=== PATIENT | male | born 1975 | race Two or more races ===

== ENCOUNTER 2024-03-08 07:14 | Emergency (ER) | payer SELFPAY ==
[2024-03-08 07:28] VITALS: BP 136/80; PULSE 79; RESP 16; TEMP 99.1; BMI 30.4
== END 2024-03-08 09:25 | disposition home or self-care (01) ==
LOC: JERFT 07:14 → JER 07:14 → JERFT 09:25
DX: S81.012A Laceration without foreign body, left knee, initial encounter (principal); S81.002A Unspecified open wound, left knee, initial encounter; W01.0XXA Fall on same level from slipping, tripping and stumbling without subsequent striking against object, initial encounter
CPT/HCPCS: 73562-TC-LT-FY; 99283-25